=== PATIENT | male | born 1955 | race Caucasian/White ===

== ENCOUNTER → 2024-08-11 08:40 | Outpatient (CLI) | payer MEDICARE, SELFPAY | LOC: EXPTRAD 08:44 | PROVIDERS: PCP Family Medicine; Visit Provider Family Medicine | DX: M25.561 Pain in right knee (principal) | CPT/HCPCS: 73564 ==

== ENCOUNTER 2024-12-30 00:39 | Day surgery (SDC) | payer MEDICARE, SELFPAY ==
[2024-12-25 13:14] VITALS: BMI 29.9
--- OUTSIDE RECORDS SUMMARY | 2024-12-30 00:41 | XMS_ITS | Clinical Summary ---
Author Organization [facility] [id number] [place] [id number] Care Team Providers Care Chemical Analytical Sampler Name Role Phone Manny Smallwood MD Primary Care Provider [phone] Allergies No known active allergies Medications sildenafil (VIAGRA) 25 mg tablet TAKE 2 TABLETS BY MOUTH ONCE DAILY NEEDED 30 MINUTES TO 4 HOURS BEFORE SEXUAL ACTIVITY 11/19/2019 Active aspirin 81 mg enteric coated tablet Take 1 tablet (81 mg total) by mouth daily Active metoprolol tartrate (LOPRESSOR) 25 mg immediate release tablet Take 1 tablet (25 mg total) by mouth 2 (two) times a day 180 tablet 3 12/20/2020 Active amLODIPine-addi zepriL (LOTREL) 5-40 mg per capsule Take by mouth daily 11/26/2022 Active Active Problems Problem Noted Date Diagnosed Date Atrial fibrillation ([facility]/HCC) 12/22/2019 Assessment & Plan (01/22/2023 9:46 AM CDT): No recurrence. Continue metoprolol. Assessment & Plan (01/23/2022 11:18 AM CDT): No recurrence of atrial fibrillation. Continue metoprolol. Assessment & Plan (12/20/2020 9:51 AM OPERATOR CONTROL ROOM): No recurrence on metoprolol. CHADS-VASc =1 Same meds. Assessment & Plan (12/22/2019 9:58 AM OPERATOR CONTROL ROOM): No recurrence Essential hypertension 12/22/2019 Assessment & Plan (02/04/2024 3:46 PM CDT): Controlled with Lotrel and metoprolol. No changes recommended. Assessment & Plan (01/22/2023 9:45 AM CDT): Controlled, Continue amlodipine, benazepril Without change Assessment & Plan (01/23/2022 11:19 AM CDT): Controlled. Assessment & Plan (12/20/2020 9:50 AM OPERATOR CONTROL ROOM): Stable No changes Assessment & Plan (12/22/2019 9:58 AM OPERATOR CONTROL ROOM): Well controlled, scripts renewed. Allergic contact dermatitis due to plant 016 Malignant neoplasm of breast 02/21/2011 Surgical History Surgery Date Site/Laterality Comments MASTECTOMY mastectomy Medical History Medical History Date Comments Malignant neoplasm of male breast (HCC) Cancer, breast Hypertension Hypertension Atrial fibrillation (CMS/HCC) (HCC) Family History Medical History Relation Name Comments Lung cancer Father Cancer, lung; C ause of : Cancer, lung Relation Name Status Comments Father Social History Tobacco Use Types Packs/Day Years Used Date Smoking Tobacco: Never Smokeless Tobacco: Never Alcohol Use Standard Drinks/Week Comments No 0 (1 standard drink = 0.6 oz pur e alcohol) Personal Safety Answer Date Recorded Getting School Help Needed Not on file 12/05 Sex and Gender Information Value Date Recorded Sex Assigned at Not on file Legal Sex Male 3:35 AM OPERATOR CONTROL ROOM Gender Identity Not on file Sexual Orientation Not on file Obstetrics History Last Filed Vital Signs Vital Sign Reading Time Taken Comments Blood Pressure 128/70 02/04/2024 1:49 PM CDT Lg Adult Cuff Pulse 60 02/04/2024 1:49 PM CDT Temperature 36.4 C (97.6 F) 12/20/2020 9:04 AM OPERATOR CONTROL ROOM Respiratory Rate 16 02/04/2024 1:49 PM CDT Oxygen Saturation 97% 02/04/2024 1:49 PM CDT Inhaled Oxygen Concentration - - Weight 100.2 kg (221 lb) 02/04/2024 1:49 PM CDT Height 182.9 cm (6') 02/04/2024 1:49 PM CDT Body Mass Index 29.97 02/04/2024 1:49 PM CDT Plan of Treatment Health Maintenance Due Date Last Done Comments Colon Cancer Screening-Colonoscopy 1956 Depression Screening 1956 Fall Risk Assessment 1956 Hepatitis C Screening 1956 Prostate Cancer Screening-PSA 1956 DTaP/Tdap/Td Vaccine (1 - Tdap) 1967 Hepatitis B Screening 1974 Zoster Vaccine (1 of 2) 2006 Pneumococcal vaccine 65+ (1 of 1 - PCV) 2021 Well Visit 65+ 2021 Influenza Vaccine (#1) 2024 09/17/2019 Insurance [employer] MEDICARE Care Teams Chemical Analytical Sampler Relationship Specialty Start Date End Date Manny Smallwood MD [address] [id number] PCP - General 07/31/15
--- OUTSIDE RECORDS SUMMARY | 2024-12-30 00:41 | XMS_ITS | Referral Summary ---
Author Organization [facility] Physician Office Building [id number] [place] [id number] Care Team Providers Care Manager Radio Name Role Phone Manny Smallwood MD Primary Care Provider [phone] Allergies No known active allergies Medications sildenafil [...] Problem Noted Date Diagnosed Date Atrial fibrillation ([facility]/HCC) 12/22/2019 Assessment & Plan (01/22/2023 9:46 AM CDT): No recurrence. Continue metoprolol. Assessment & Plan (01/23/2022 11:18 AM CDT): No recurrence of atrial fibrillation. Continue metoprolol. Assessment & Plan (12/20/2020 9:51 AM NAILER HAND): No recurrence on metoprolol. CHADS-VASc =1 Same meds. Assessment & Plan (12/22/2019 9:58 AM NAILER HAND): No recurrence Essential hypertension 12/22/2019 Assessment & Plan (02/04/2024 3:46 PM CDT): Controlled with Lotrel and metoprolol. No changes recommended. Assessment & Plan (01/22/2023 9:45 AM CDT): Controlled, Continue amlodipine, benazepril Without change Assessment & Plan (01/23/2022 11:19 AM CDT): Controlled. Assessment & Plan (12/20/2020 9:50 AM NAILER HAND): Stable No changes Assessment & Plan (12/22/2019 9:58 AM NAILER HAND): Well controlled, scripts renewed. Allergic contact dermatitis due to plant 016 Malignant neoplasm of breast 02/21/2011 Social History Tobacco Use Types Packs/Day Years Used Date Smoking Tobacco: Never Smokeless Tobacco: Never Alcohol Use Standard Drinks/Week Comments No 0 (1 standard drink = 0.6 oz pur e alcohol) Personal Safety Answer Date Recorded Getting School Help Needed Not on file 12/05 Sex and Gender Information Value Date Recorded Sex Assigned at Not on file Legal Sex Male 3:35 AM NAILER HAND Gender Identity Not on file Sexual Orientation Not on file Last Filed Vital Signs Vital Sign Reading Time Taken Comments Blood Pressure 128/70 02/04/2024 1:49 PM CDT Lg Adult Cuff Pulse 60 02/04/2024 1:49 PM CDT Temperature 36.4 C (97.6 F) 12/20/2020 9:04 AM NAILER HAND Respiratory Rate 16 02/04/2024 1:49 PM CDT Oxygen Saturation 97% 02/04/2024 1:49 PM CDT Inhaled Oxygen Concentration - - Weight 100.2 kg (221 lb) 02/04/2024 1:49 PM CDT Height 182.9 cm (6') 02/04/2024 1:49 PM CDT Body Mass Index 29.97 02/04/2024 1:49 PM CDT Plan of Treatment Not on file Insurance [employer] MEDICARE Care Teams Manager Radio Relationship Specialty Start Date End Date Manny Smallwood MD [address] [id number] PCP - General 07/31/15
[2024-12-30 11:21] VITALS: BP 137/90; PULSE 67; RESP 18; TEMP 36.5; O2SAT 98
[2024-12-30] MEDS: LACTATED RINGERS 1,000 ML 150 ML IV CONT (11:32)
--- NOTE | 2024-12-30 11:42 | P.PNAN_ITS ---
Anes - Initial Pre Proc Eval Procedure: Operation Date: 12/30/24 12:30 Proposed Procedures p Colonoscopy - Kenneth Ryan MD Date/Time: 12/30/24 11:42 Surgeon: Kenneth Ryan MD Pre Op Diagnosis: Hemorrhage of anus and rectum Patient Data Age: 69 Gender: M Height: 1.83 m Weight: 99.2 kg Last Vital Signs Temp 36.5 C 12/30/24 11:21 Pulse 67 12/30/24 11:21 Resp 18 12/30/24 11:21 BP 137/90 12/30/24 11:21 Pulse Ox 98 12/30/24 11:21 O2 Del Method Room Air 12/30/24 11:21 Allergies Allergy/AdvReac Type Severity Reaction Status Date / Time No Known Allergies Allergy Verified 12/30/24 11:20 Home Medications ?Medication ?Instructions ?Recorded ?Confirmed ?Type loratadine 10 mg tablet (Claritin) 10 mg PO DAILY PRN allergy symptoms 11/27/21 12/30/24 History cyanocobalamin (vitamin B-12) 500 500 mcg PO DAILY 06/11/23 12/30/24 History mcg tablet amlodipine 5 mg-benazepril 40 mg 1 cap PO DAILY #90 caps 12/16/23 12/30/24 Rx capsule metoprolol tartrate 25 mg tablet 25 mg PO BID #180 tabs 12/16/23 12/30/24 Rx cholecalciferol (vitamin D3) 50 4,000 unit PO DAILY 06/30/24 12/30/24 History mcg (2,000 unit) tablet sildenafil 50 mg tablet 50 mg PO DAILY PRN sexual activity 06/30/24 12/25/24 Rx #30 tabs meloxicam 15 mg tablet 15 mg PO DAILY PRN pain #30 tabs 08/11/24 12/25/24 Rx aspirin 81 mg tablet,delayed 81 mg PO DAILY 12/21/24 12/30/24 History release (Adult Low Dose Aspirin) Patient hx anesthesia problems: none Family hx anesthesia problems: none Results Review: All pre-operative results and documents have been reviewed as part of the pre- operative evaluation. [facility] Past Medical History Medical History Rectal bleed (12/21/24) Right knee pain (~06/2024) Normal x-ray 08/11/2024. At moderate risk for fall History of atrial fibrillation noticed on 1 EKG 10 years ago with subsequent testing always normal. No treatment. 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 ratio normal at 20 on 06/04/2023. Poor balance (~2020) BMI 34.0-34.9,adult Vitamin B12 deficiency anemia (11/16/21) vitamin B12 low at 360 with goal greater than 400 on 11/16/2021. Level normal at 1027 on 05/16/2022. Normal at 1929 with hemoglobin 15.4 on 06/04/2023. Level normal at 610 on 06/25/2024. Peripheral neuropathy due to chemotherapy Insomnia Nocturia Adult BMI 37.0-37.9 kg/sq m Controlled diabetes mellitus fasting glucose 140 with hemoglobin A1c 6.1 on 11/16/2021. Glucose 126 with hemoglobin A1c 5.8 on 05/16/2022. Microalbumin ratio elevated at 82. Glucose 106 with hemoglobin A1c 5.4 on 11/20/2022. Fasting glucose 97 with hemoglobin A1c 5.1 with urine microalbumin ratio of 20 on 06/04/2023. fasting glucose 105 with hemoglobin A1c 5.3 without medication on 12/10/2023. Fasting glucose 110 with hemoglobin A1c 5.7 on 06/25/2024. Exposure to COVID-19 virus Anxiety Right ankle pain Acute sinusitis, unspecified Body mass index (bmi) 38.0-38.9, adult (02/10/19) CRP elevated HS CRP elevated at greater than 10 on 11/16/2021. HS CRP elevated at 8.5 on 05/16/2022. CRP level normal at 7.8 with normal less than 8.0 On 06/04/2023. Fatigue Malignant neoplasm of right male breast Encounter for prostate cancer screening PSA 0.38 on 11/16/2021. PSA 0.49 on 11/20/2022. PSA 0.5 on 12/10/2023. Social History Social History Smoking status: Never smoker Alcohol intake: never Substance use: never Substance use type: does not use Lack of Transportation: No Lack of Food: Never True Current Housing: I Have Housing Concerned About Future Housing: No Difficulty Paying Gas/Electric Bills: No Difficulty Paying for Meds: No Currently Unemployed: No Education: Bachelor's Degree Difficulty w/ Childcare or Family Care: No Living arrangements: with family Spiritual care concerns: No Anes - Eval Final PreProcedure Day of Procedure 12/30/24 11:42 Patient weight: obese Heart: regular rate and rhythm Lungs: clear to auscultation Airway: Mallampati scale class II Neurological: alert and oriented Last oral intake: >/= 8 hours ASA classification: III Emergent: no Anesthetic plan: proceed Anesthesia type and monitoring: general GIVS and standard monitoring Results Review: All pre-operative results and documents have been reviewed as part of the pre- operative evaluation. Informed Consent: The patient's anesthetic plan and its attendant risks and benefits were discussed with the patient/family/POA. Questions were solicited and answers provided to the satisfaction of the patient/family/POA.
--- NOTE | 2024-12-30 12:41 | P.HP_ITS ---
H&P: [facility] History of Present Illness Date/Time: 12/30/24 12:41 Chief Complaint: History of colon polyps - rectal bleeding Narrative: the patient has a history of colon polyps, last colonoscopy 8 years ago. He is referred in for recent onset rectal bleeding episodes mixed with mucus. Review of Systems Review of Systems: All systems reviewed & are unremarkable except as noted in HPI and below PMFSH Past Medical History Medical History Rectal bleed (12/21/24) Right knee pain (~06/2024) Normal x-ray 08/11/2024. At moderate risk for fall History of atrial fibrillation noticed on 1 EKG 10 years ago with subsequent testing always normal. No treatment. 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 ratio normal at 20 on 06/04/2023. Poor balance (~2020) BMI 34.0-34.9,adult Vitamin B12 deficiency anemia (11/16/21) vitamin B12 low at 360 with goal greater than 400 on 11/16/2021. Level normal at 1027 on 05/16/2022. Normal at 1929 with hemoglobin 15.4 on 06/04/2023. Level normal at 610 on 06/25/2024. Peripheral neuropathy due to chemotherapy Insomnia Nocturia Adult BMI 37.0-37.9 kg/sq m Controlled diabetes mellitus fasting glucose 140 with hemoglobin A1c 6.1 on 11/16/2021. Glucose 126 with hemoglobin A1c 5.8 on 05/16/2022. Microalbumin ratio elevated at 82. Glucose 106 with hemoglobin A1c 5.4 on 11/20/2022. Fasting glucose 97 with hemoglobin A1c 5.1 with urine microalbumin ratio of 20 on 06/04/2023. fasting glucose 105 with hemoglobin A1c 5.3 without medication on 12/10/2023. Fasting glucose 110 with hemoglobin A1c 5.7 on 06/25/2024. Exposure to COVID-19 virus Anxiety Right ankle pain Acute sinusitis, unspecified Body mass index (bmi) 38.0-38.9, adult (02/10/19) CRP elevated HS CRP elevated at greater than 10 on 11/16/2021. HS CRP elevated at 8.5 on 05/16/2022. CRP level normal at 7.8 with normal less than 8.0 On 06/04/2023. Fatigue Malignant neoplasm of right male breast Encounter for prostate cancer screening PSA 0.38 on 11/16/2021. PSA 0.49 on 11/20/2022. PSA 0.5 on 12/10/2023. Social History Social History Smoking status: Never smoker Alcohol intake: never Substance use: never Substance use type: does not use Lack of Transportation: No Lack of Food: Never True Current Housing: I Have Housing Concerned About Future Housing: No Difficulty Paying Gas/Electric Bills: No Difficulty Paying for Meds: No Currently Unemployed: No Education: Bachelor's Degree Difficulty w/ Childcare or Family Care: No Living arrangements: with family Spiritual care concerns: No Meds Home Medications and Allergies Home Medications ?Medication ?Instructions ?Recorded ?Confirmed ?Type loratadine 10 mg tablet (Claritin) 10 mg PO DAILY PRN allergy symptoms 11/27/21 12/30/24 History cyanocobalamin (vitamin B-12) 500 500 mcg PO DAILY 06/11/23 12/30/24 History mcg tablet amlodipine 5 mg-benazepril 40 mg 1 cap PO DAILY #90 caps 12/16/23 12/30/24 Rx capsule metoprolol tartrate 25 mg tablet 25 mg PO BID #180 tabs 12/16/23 12/30/24 Rx cholecalciferol (vitamin D3) 50 4,000 unit PO DAILY 06/30/24 12/30/24 History mcg (2,000 unit) tablet sildenafil 50 mg tablet 50 mg PO DAILY PRN sexual activity 06/30/24 12/25/24 Rx #30 tabs meloxicam 15 mg tablet 15 mg PO DAILY PRN pain #30 tabs 08/11/24 12/25/24 Rx aspirin 81 mg tablet,delayed 81 mg PO DAILY 12/21/24 12/30/24 History release (Adult Low Dose Aspirin) Allergies Allergy/AdvReac Type Severity Reaction Status Date / Time No Known Allergies Allergy Verified 12/30/24 11:20 Vital Signs Vital Signs - 24 hr 12/30/24 11:21 Temperature 97.7 F Pulse Rate 67 Respiratory Rate 18 Blood Pressure 137/90 Pulse Oximetry 98 Oxygen Delivery Room Air Exam Const: General: cooperative and healthy appearing Resp: Effort & Inspection: normal respiratory effort and able to speak in complete sentences Auscultation: clear to auscultation bilaterally Cardio: Rate: regular rate Rhythm: regular rhythm GI: Inspection: normal to inspection GI Palp: No No hepatosplenomegaly present Auscultation: normal bowel sounds Rectal Exam: deferred Skin: General skin exam: normal color Psych: Appearance: grossly normal Mental Status: mental status grossly normal Assessment and Plan Assessment and plan (1) History of colonic polyps: Code(s): Z86.0100 - Personal history of colon polyps, unspecified Status: Acute Assessment and Plan: The patient is deemed a good candidate for the procedure. Consent signed. Will proceed.
[2024-12-30 13:59] VITALS: BP 83/44; PULSE 105; RESP 18; O2SAT 95
[2024-12-30 14:09] VITALS: BP 107/57; PULSE 90; RESP 18; O2SAT 100
--- NOTE | 2024-12-30 14:10 | SUR.PHASEII ---
upon arrival to postop pts heart rate was 105-110's. rhythm irregular, afib vs sinus arrhythmia with pacs. pts states pt was very stressed prior to procedure and this has happened before. pt has had afib episodes in the past but episodes do not last long. ana chassis engineer aware, fluids increased. once pt awake and alert, heart rate down to 90s. spoke to pt about his rhythm, states he takes metoprolol for this. rhythm remained sinus arrythmia with frequent pacs. encouraged pt to drink fluids today and per chassis engineer, instructed to drink beverage with electrolytes. pt and voiced understanding.
[2024-12-30 14:19] VITALS: BP 113/77; PULSE 85; RESP 18; O2SAT 100
== END 2024-12-30 14:30 | disposition home or self-care (01) ==
PROVIDERS: PCP Family Medicine; Referring Provider Family Medicine; Visit Provider Internal Medicine Gastroenterology
PROC: 0DJD8ZZ Inspection of Lower Intestinal Tract, Via Natural or Artificial Opening Endoscopic (ICD-10-PCS; CPT 45378; principal; 2024-12-30 12:30)
DX: K62.5 Hemorrhage of anus and rectum (principal); K57.30 Diverticulosis of large intestine without perforation or abscess without bleeding; K64.8 Other hemorrhoids; Z86.0100 Personal history of colon polyps, unspecified; E66.9 Obesity, unspecified; Z68.29 Body mass index [BMI] 29.0-29.9, adult
CPT/HCPCS: 45378; J2704; J7120